=== PATIENT | female | born 1975 | race Caucasian/White ===

== ENCOUNTER 2023-03-22 22:45 | Emergency (ER) | payer MEDICARE, SELFPAY ==
[2023-03-22 22:51] VITALS: BP 135/102; PULSE 114; O2SAT 99
[2023-03-22 23:00] VITALS: PULSE 118; RESP 20; O2SAT 99
[2023-03-22 23:05] VITALS: BP 135/102; PULSE 106; RESP 23; O2SAT 99; BMI 34.0
--- NOTE | 2023-03-22 23:10 | ED_ITS ---
HPI - Neuro Symptoms/Deficit General Chief Complaint: Neuro Symptoms/Deficit Stated Complaint: Left sided facial droop Time Seen by Provider: 03/22/23 22:57 Source: patient Mode of arrival: Ambulatory History of Present Illness HPI Narrative: Patient is a 48-year-old female. She is here for evaluation of left-sided facial droop. She states the symptoms started 48 hours ago. She did smoke meth on the day of the onset of the symptoms. She thinks that it was a gradual onset. Over the past 2 days she is had waxing and waning symptoms but does not necessarily think that they have completely gone away. She is no other associated symptoms to include headache, vision changes, extremity weakness, extremity tingling or balance issues. She was seen at an outside emergency department yesterday secondary to an abscess on her right leg which was drained. She is on antibiotics. She did not mention the facial droop to the emergency physician at that time. She is never had symptoms like this in the past. No skin rashes. She has had surgery to repair a fracture of the orbital rim of her left eye but that was several years ago. No hearing changes. On Anticoagulants: No Review of Systems Review of Systems ROS Unobtainable: All systems reviewed & are unremarkable except as noted in HPI and below Hematologic/Lymphatic On Anticoagulants: No Patient History Social History Smoking Status: Current every day smoker Smoking Status: Current every day smoker tobacco type: cigarettes and vaping alcohol intake frequency: holidays/special occasions only Substance Use Type: methamphetamine Exam Initial Vital Signs Initial Vital Signs: Vital Signs Pulse Rate 114 H 03/22/23 22:51 Blood Pressure 135/102 H 03/22/23 22:51 Pulse Oximetry 99 03/22/23 22:51 Const General: cooperative, comfortable and No ill appearing HENMT Head: normal to inspection and normocephalic Nose: external nose normal Face and sinus: normal facial exam Mouth: oral mucosae normal Teeth and gingiva: poor dentition Eyes Pupils: PERRL EOM: EOM intact bilaterally Resp Effort & Inspection: normal respiratory effort Cardio Rate: regular rate GI Inspection: normal to inspection and non-distended Skin General: no rashes or lesions noted Neuro General: patient alert, patient awake, patient oriented x3, gait normal, tone normal and moves all extremities Speech: speech normal Motor: muscle tone normal throughout Sensory Exam: no sensory deficits noted Other: Cranial nerves are intact except that she does have a droop to the left side of her face. This does involve her upper eyelid but not necessarily her forehead. Her tongue is midline. She is no sensory deficits to light touch. Rest of her cranial nerves are intact. Extrem General: normal to inspection, capillary refill normal and No edema Scores GCS [place] coma scale eye opening: Spontaneous [place] coma scale verbal response: Orientated [place] coma scale motor response: Obey commands [place] coma scale total score: 15 Course Orders Ordered: ED Orders 03/22/23 22:30 Complete Blood Count AUTO DIFF Stat Comprehensive Metabolic Panel Stat Lipase Stat PTT Partial Thromboplastin Chaka Stat Prothrombin Time INR Stat 03/22/23 23:11 CT angio head and neck Stat CT head/brain wo con Stat EKG-12 Lead Stat Vital Signs Vital signs: Vital Signs - 8 hr 03/22/23 22:51 03/22/23 22:51 03/22/23 23:00 Pulse Rate 114 H 118 H Respiratory Rate 20 Blood Pressure 135/102 H Pulse Oximetry 99 99 Oxygen Delivery Method 03/22/23 23:05 03/22/23 23:30 03/22/23 23:50 Pulse Rate 106 H 97 H Respiratory Rate 23 18 Blood Pressure 135/102 H 128/82 Pulse Oximetry 99 97 Oxygen Delivery Method Room Air 03/22/23 23:50 Pulse Rate 99 H Respiratory Rate 19 Blood Pressure Pulse Oximetry 98 Oxygen Delivery Method MDM - Neuro Symptoms/Deficit Lab Data Attestation: I reviewed the patient's lab results. 03/22/23 22:30 03/22/23 22:30 Labs: Lab Results 03/22/23 Range/Units 22:30 WBC 6.6 (4.5-11.0) X10^3/uL RBC 4.62 (4.0-5.2) X10^6/uL Hgb 14.1 (12.0-16.0) g/dL Hct 41.1 (36-46) % MCV 89.0 (80-100) fL MCH 30.5 (26-34) PG MCHC 34.2 (30-36) % RDW 12.5 (11.6-14.8) % Plt Count 367 (150-400) X10^3/uL Neut % (Auto) 54.0 (50-75) % Lymph % (Auto) 31.9 (25-40) % [place] % (Auto) 9.0 (3-14) % Eos % (Auto) 4.0 (2-4) % Baso % (Auto) 1.1 (0-2) % Neut # (Auto) 3600 (1644-9434) /uL Lymph # (Auto) 2100 (3542-2626) /uL [place] # (Auto) 600 (0-900) /uL Eos # (Auto) 300 (0-450) /uL Baso # (Auto) 100 (0-100) /uL PT 11.4 (9.4-12.5) SECONDS INR 1.0 (0.9-1.3) APTT 35 (25.1-36.5) SECONDS Sodium 137 (137-145) mmol/L Potassium 4.1 (3.4-5.1) mmol/L Chloride 105 (98-107) mmol/L Carbon Dioxide 23 (22-32) mmol/L BUN 16 (7-17) mg/dL Creatinine 0.72 (0.52-1.04) mg/dL Estimated GFR > 60 (>60) mL/min BUN/Creatinine Ratio 22.2 H (6-22) Glucose 124 H (70-100) mg/dL Calcium 9.3 (8.4-10.2) mg/dL Total Bilirubin 0.5 (0.2-1.3) mg/dL AST 34 (14-36) IU/L ALT 39 H (<35) IU/L Alkaline Phosphatase 99 (38-126) U/L Total Protein 8.0 (6.3-8.2) g/dL Albumin 4.1 (3.5-5.0) g/dL Globulin 3.9 (1.7-4.1) g/dL Albumin/Globulin Ratio 1.1 (1.0-2.8) Lipase 92 (23-300) U/L Imaging Data CT scan - head: Radiologist's Impression: PROCEDURE: CT HEAD/BRAIN WO CON INDICATIONS: Left-sided facial droop TECHNIQUE: Noncontrast 4.5 mm thick angled axial sections acquired from the foramen magnum to the vertex, with coronal and sagittal reformats. For radiation dose reduction, the following was used: automated exposure control, adjustment of mA and/or kV according to patient size. COMPARISON: None. FINDINGS: Image quality: Diagnostic. CSF spaces: Basal cisterns are patent. No extra-axial fluid collections. Ventricles are normal in size and shape. Brain: No midline shift. No intracranial masses or hemorrhage. [place]-white matter interface is normal. Skull and face: Calvarium and visualized facial bones are intact, without suspicious lesions. Sinuses: Visualized sinuses and mastoids are clear. IMPRESSION: CT head without acute intracranial abnormalities. No mass or mass effect visualized. CTA - brain/neck: Radiologist's Impression: PROCEDURE: CT ANGIO HEAD AND NECK INDICATIONS: Left-sided facial droop TECHNIQUE: After the administration of intravenous contrast, 1 mm thick sections acquired from the aortic arch through the [place] of [place]. 3-dimensional yeyorhe-yhheznjba-wzufvmrkbn (MIP) and/or volume rendering reformats were acquired of the central intracranial vasculature and neck separately. For radiation dose reduction, the following was used: automated exposure control, adjustment of mA and/or kV according to patient size. COMPARISON: None. FINDINGS: Image quality: Diagnostic. BRAIN: CSF spaces: Ventricles are normal in size and shape. Basal cisterns are patent. No extra-axial fluid collections. Brain: No midline shift. No intracranial masses. No abnormal intracranial enhancement. [place]-white matter interface appears intact. Skull and face: Calvarium and facial bones appear intact, without suspicious lesions. Orbits appear normal. Sinuses: Mild bilateral maxillary sinus mucosal thickening. Remainder of the paranasal sinuses and mastoids are clear. HEAD CT ANGIOGRAPHY: Anterior circulation: Intracranial internal carotid arteries appear patent without high-grade stenosis. There is flow/opacification within the paired anterior cerebral arteries. There is opacification within the middle cerebral arteries. The anterior communicating artery is seen. No aneurysms are seen. No occlusion. Posterior circulation: Visualized portions of the vertebral arteries are patent and join to form a normal appearing basilar artery. No evidence for high-grade stenosis. No occlusions. There is opacification of the posterior cerebral arteries. No aneurysms are seen. NECK CT ANGIOGRAPHY: Carotid system: The great vessels demonstrate a conventional anatomy as they arise from the aortic arch. The origins of the common carotid arteries appear patent. The common carotid arteries appear patent throughout their visualized courses without high grade stenosis. The bifurcation regions are both patent without high grade stenosis. The internal carotid arteries demonstrate normal calibers and courses. Posterior circulation: The origins of the vertebral arteries both appear patent without hemodynamically significant stenosis. The more superior extracranial portions of both vertebral arteries also demonstrate normal courses and calibers. They join to form a normal appearing basilar artery. Soft tissues: Visualized neck soft tissues demonstrate no suspicious abnormalities. No adenopathy seen. Bones: No suspicious bony lesions. Visualized cervical spine appears normally aligned. No acute compression fractures of the vertebral bodies. Straightening of cervical lordosis which may be due to patient positioning and/or concurrent muscle spasms. Multilevel cervical spondylosis most severe at C5-6 and C6-7. IMPRESSION: Negative CT angiogram of the intracranial and neck arterial vasculature for occlusion, high-grade stenosis, dissection, or aneurysm. Mild bilateral maxillary sinus disease. Mild straightening of normal cervical lordosis likely related to positioning and/or concurrent muscle spasms. Multilevel cervical spondylosis most pronounced at C5-6 and C6-7 ECG Data Interpretation: Sinus tachycardia Ventricular rate 103 Normal axis Normal QRS Normal QTC No ST T wave changes MDM Narrative Medical decision making narrative: Based on her presentation today I do have concern for CVA/TIA or Landry's palsy. Her symptoms have been going on for the past 2 days. Out of the window for tPA or code IR if this was a CVA. Initially based on her exam it did involve the left side of her face and did involve her left upper eyelid but did not seem to involve the left forehead. It seemed to be a motor deficit only. There was no sensory deficits. No other neurologic symptoms. The rest of her cranial nerves are unremarkable. Her head CT and CTA of the head neck were unremarkable. Upon re-evaluation after the CT scans her symptoms are much better. She was still having some drooping of the left lower face but the left upper face seemed to be completely normal and equal to the right. I had discussion with her regarding her symptoms. We discussed the possibility of a CVA however her symptoms are waxing and waning in it has been 2 days since the onset. We also discussed the possibility of Landry's palsy. Informed her that the fact that is waxing and waning and that it did not involve her forehead although it did involve her left upper eye makes Landry's palsy somewhat questionable. We discussed options to include staying here in the emergency department this evening and obtaining an MRI in the morning versus discharge home and follow-up with the primary doctor. She wonders whether or not her symptoms are anxiety related she has had some housing instability and has had quite a bit of stress recently. I informed her that this could be anxiety related. After the discussion the patient states she would like to be discharged home. She understands the risks and benefits in the lack of a definitive diagnosis and understands this could still be a CVA (although I do think that this is unlikely) she was given strict return precautions. She expressed understanding and agreement. Discharge Plan Departure Patient Disposition: Home Clinical Impression: Facial palsy Activity Restrictions/Additional Instructions: I recommend that you continue to take all of your medications to include the antibiotics as directed. Recommend you contact your primary doctor for a follow-up. If you start to have worsening symptoms or more persistent symptoms or new symptoms please return to the emergency department for further evaluation like we discussed. Stand Alone Forms: Patient Portal/API
[2023-03-22 23:30] VITALS: PULSE 97; RESP 18; O2SAT 97
[2023-03-22 23:50] VITALS: BP 128/82; PULSE 99; RESP 19; O2SAT 98
[2023-03-22 23:59] LABS: Add Manual Diff / Slide Review NO; Basophils Absolute Auto 100 /uL (0-100); Basophils Percent Auto 1.1 % (0-2); Eosinophils Absolute Auto 300 /uL (0-450); Hematocrit 41.1 % (36-46); Hemoglobin 14.1 g/dL (12.0-16.0); Lymphocytes Absolute Auto 2100 /uL (1100-4500); Lymphocytes Percent Auto 31.9 % (25-40); Mean Corpuscular HGB Conc 34.2 % (30-36); Mean Corpuscular Hemoglobin 30.5 PG (26-34); Monocytes Absolute Auto 600 /uL (0-900); Neutrophils Absolute Auto 3600 /uL (1500-7000); Platelet Count 367 X10^3/uL (150-400); Red Blood Cell Count 4.62 X10^6/uL (4.0-5.2); Red Cell Distribution Width 12.5 % (11.6-14.8); White Blood Cell Count 6.6 X10^3/uL (4.5-11.0)
[2023-03-23] VITALS: BP 129/83; PULSE 98; RESP 23; O2SAT 98
[2023-03-23 00:04] LABS: Prothrombin Time 11.4 SECONDS (9.4-12.5)
[2023-03-23 00:06] LABS: PTT Partial Thromboplastin Tim 35 SECONDS (25.1-36.5)
[2023-03-23 00:09] LABS: Alanine Aminotransferase 39 IU/L (<35); Albumin 4.1 g/dL (3.5-5.0); Albumin Globulin Ratio 1.1 (1.0-2.8); Alkaline Phosphatase 99 U/L (38-126); Aspartate Aminotransferase 34 IU/L (14-36); BUN Creatinine Ratio 22.2 (6-22); Bilirubin Total 0.5 mg/dL (0.2-1.3); Blood Urea Nitrogen 16 mg/dL (7-17); Calcium 9.3 mg/dL (8.4-10.2); Carbon Dioxide 23 mmol/L (22-32); Chloride 105 mmol/L (98-107); Estimated Glomerular Filt Rate > 60 mL/min (>60); Globulin 3.9 g/dL (1.7-4.1); Glucose 124 mg/dL (70-100); HEMOLYSIS 18 (0-50); Lipase 92 U/L (23-300); Potassium 4.1 mmol/L (3.4-5.1); Sodium 137 mmol/L (137-145)
[2023-03-23 00:30] VITALS: BP 121/86; PULSE 97; RESP 18; O2SAT 98
[2023-03-23 00:53] VITALS: BP 137/89; PULSE 97; RESP 18; TEMP 36.8; O2SAT 98
== END 2023-03-23 01:00 | disposition home or self-care (01) ==
PROVIDERS: Emergency Provider Emergency Medicine
DX: G51.0 Bell's palsy (principal); R00.0 Tachycardia, unspecified
CPT/HCPCS: 36415; 70450; 70496; 70498; 80053; 83690; 85025; 85610; 85730; 93005; 93010; 99284; Q9967

== ENCOUNTER 2023-03-23 10:29 | Emergency (ER) | payer MEDICARE, SELFPAY ==
[2023-03-23 10:42] VITALS: BP 126/84; PULSE 106; RESP 18; TEMP 36.5; O2SAT 97; BMI 34.0
[2023-03-23 10:49] VITALS: PULSE 99; O2SAT 97
[2023-03-23 11:00] VITALS: BP 123/83; PULSE 96; O2SAT 98
[2023-03-23 11:12] LABS: Add Manual Diff / Slide Review NO; Basophils Absolute Auto 100 /uL (0-100); Basophils Percent Auto 0.9 % (0-2); Eosinophils Absolute Auto 200 /uL (0-450); Hematocrit 40.3 % (36-46); Hemoglobin 13.8 g/dL (12.0-16.0); Lymphocytes Absolute Auto 2100 /uL (1100-4500); Mean Corpuscular HGB Conc 34.3 % (30-36); Mean Corpuscular Hemoglobin 30.6 PG (26-34); Monocytes Absolute Auto 600 /uL (0-900); Monocytes Percent Auto 8.3 % (3-14); Neutrophils Absolute Auto 4100 /uL (1500-7000); Neutrophils Percent Auto 57.8 % (50-75); Platelet Count 385 X10^3/uL (150-400); Red Blood Cell Count 4.53 X10^6/uL (4.0-5.2); Red Cell Distribution Width 12.5 % (11.6-14.8)
--- NOTE | 2023-03-23 11:16 | ED_ITS ---
HPI - Headache General Chief Complaint: Headache Stated Complaint: here last night symptoms got worse/ landry's palsy? Time Seen by Provider: 03/23/23 11:05 Mode of arrival: Ambulatory History of Present Illness HPI Narrative: Patient is 48-year-old female history of methamphetamine abuse presents for the 2nd time facial. She was seen evaluated here last night head workup included CT angio CT head and blood work concerning for Landry's palsy, although CVA not completely ruled out with MRI. Patient reports that symptoms started about 3 days ago. She admits to smoking methamphetamine yesterday. She feels like her facial be a little bit worse. She does have difficulty closing her left eye. No fever or chills. No numbness tingling or weakness or other deficits. No chest pain palpitations or any other symptoms. Related Data Previous Rx's Medication Instructions Recorded acyclovir 800 mg tablet 800 mg PO 5XD #35 tabs 03/23/23 carboxymethylcellulose sodium 1 % 2 drp EYE-LEFT Q2HRWA #15 mL 03/23/23 eye drops (Artificial Tears (carboxymethylcellulose)) prednisone 20 mg tablet 40 mg (2 x 20 mg) PO DAILY #10 tabs 03/23/23 white petrolatum-mineral oil 83 0.25 inch EYE-LEFT Q2HRWA #3.5 03/23/23 %-15 % eye ointment (Artificial grams Eye Lubricant) Allergies Allergy/AdvReac Type Severity Reaction Status Date / Time erythromycin base Allergy Verified 03/23/23 10:42 sumatriptan Allergy Verified 03/23/23 10:42 Patient History Social History Smoking Status: Current every day smoker Smoking Status: Current every day smoker tobacco type: cigarettes and vaping alcohol intake frequency: holidays/special occasions only Substance Use Type: methamphetamine Exam Initial Vital Signs Initial Vital Signs: Vital Signs Temperature 97.7 F 03/23/23 10:42 Pulse Rate 106 H 03/23/23 10:42 Respiratory Rate 18 03/23/23 10:42 Blood Pressure 126/84 03/23/23 10:42 Pulse Oximetry 97 03/23/23 10:42 Oxygen Delivery Method Room Air 03/23/23 10:42 GENERAL: Alert 48-year-old female HEENT: Head atraumatic,EOMI, pupils reactive, left facial droop, inability to completely close left eye moist mucous membranes CARDIOVASCULAR: Regular rate and rhythm without murmurs, rubs or gallops. RESPIRATORY: Breath sounds equal bilaterally, no wheezes rales or rhonchi. ABDOMEN: Soft, nontender. Normoactive bowel sounds all 4 quadrants. No guarding or rebound. EXTREMITIES: Normal range of motion, no clubbing or edema. Neurovascularly intact NEUROLOGICAL: Alert and oriented x4.Normal gait and speech. Cranial nerves II through XII grossly intact. Good iqxydq-[id number], good [id number]-[id number], strength equal bilaterally, no dysarthria or aphasia, sensation in tact to soft touch bilaterally, no visual changes, left facial droop SKIN: Warm, dry, no laceration, no petechiae, no rashes or lesions. Course Orders Ordered: ED Orders 03/23/23 11:00 Complete Blood Count AUTO DIFF Stat Comprehensive Metabolic Panel Stat Magnesium Stat PTT Partial Thromboplastin Chaka Stat Prothrombin Time INR Stat Troponin & CK Cardiac Panel Stat 03/23/23 11:23 MR stroke Stat 03/23/23 11:27 EKG-12 Lead Stat Discontinued Medications Ondansetron HCl (Ondansetron 4 Mg/2 Ml Inj) 4 mg IV NOW PRN PRN Reason: Nausea And Vomiting Ondansetron HCl (Ondansetron 4 Mg Odt) 4 mg SL NOW PRN PRN Reason: Nausea And Vomiting Vital Signs Vital signs: Vital Signs - 8 hr 03/23/23 10:42 03/23/23 10:49 03/23/23 11:00 Temperature 97.7 F Pulse Rate 106 H 99 H Respiratory Rate 18 Blood Pressure 126/84 123/83 Pulse Oximetry 97 97 Oxygen Delivery Method Room Air 03/23/23 11:00 03/23/23 11:30 03/23/23 15:15 Temperature Pulse Rate 96 H 98 H Respiratory Rate Blood Pressure 124/78 Pulse Oximetry 98 98 Oxygen Delivery Method 03/23/23 15:15 03/23/23 15:15 03/23/23 16:41 Temperature 97.6 F Pulse Rate 118 H 99 H Respiratory Rate 12 Blood Pressure 134/91 H Pulse Oximetry 97 99 Oxygen Delivery Method Room Air MDM - Headache Lab Data 03/23/23 11:00 03/23/23 11:00 Labs: Lab Results 12/15/23 Range/Units 11:00 WBC 7.0 (4.5-11.0) X10^3/uL RBC 4.53 (4.0-5.2) X10^6/uL Hgb 13.8 (12.0-16.0) g/dL Hct 40.3 (36-46) % MCV 89.0 (80-100) fL MCH 30.6 (26-34) PG MCHC 34.3 (30-36) % RDW 12.5 (11.6-14.8) % Plt Count 385 (150-400) X10^3/uL Neut % (Auto) 57.8 (50-75) % Lymph % (Auto) 30.0 (25-40) % [place] % (Auto) 8.3 (3-14) % Eos % (Auto) 3.0 (2-4) % Baso % (Auto) 0.9 (0-2) % Neut # (Auto) 4100 (7154-0491) /uL Lymph # (Auto) 2100 (5269-4264) /uL [place] # (Auto) 600 (0-900) /uL Eos # (Auto) 200 (0-450) /uL Baso # (Auto) 100 (0-100) /uL PT 11.7 (9.4-12.5) SECONDS INR 1.0 (0.9-1.3) APTT 35 (25.1-36.5) SECONDS Sodium 137 (137-145) mmol/L Potassium 4.0 (3.4-5.1) mmol/L Chloride 103 (98-107) mmol/L Carbon Dioxide 25 (22-32) mmol/L BUN 15 (7-17) mg/dL Creatinine 0.86 (0.52-1.04) mg/dL Estimated GFR > 60 (>60) mL/min BUN/Creatinine Ratio 17.4 (6-22) Glucose 108 H (70-100) mg/dL Calcium 9.6 (8.4-10.2) mg/dL Magnesium 2.0 (1.6-2.3) mg/dL Total Bilirubin 0.5 (0.2-1.3) mg/dL AST 35 (14-36) IU/L ALT 40 H (<35) IU/L Alkaline Phosphatase 100 (38-126) U/L Total Creatine Kinase 33 (30-135) U/L Troponin I < 0.012 (0.01-0.034) ng/mL Total Protein 8.1 (6.3-8.2) g/dL Albumin 4.2 (3.5-5.0) g/dL Globulin 3.9 (1.7-4.1) g/dL Albumin/Globulin Ratio 1.1 (1.0-2.8) Imaging Data MR brain: Radiologist's Impression: PROCEDURE: MR STROKE Pre- and post-contrast brain MRI, non-contrast brain MR angiogram, pre- and postcontrast neck MR angiogram INDICATIONS: left facial droop TECHNIQUE: Brain: Noncontrast axial T1 spin echo, axial T2 fast spin echo, sagittal and axial FLAIR, coronal T2 fast spin echo, axial gradient echo, axial diffusion and ADC through the brain. After the administration of contrast, axial 3D VIBE of the cranial vasculature and brain. Brain MRA: Non-contrast 3-D time of flight MR angiogram, with multiple mgrhxyq-ctzfpfvpt-xdhbdvzisq (MIP) reformats performed. Neck MRA: Axial and sagittal TruFISP through the neck. Coronal dynamic MR angiogram during administration of contrast in the arterial and venous phases, with 3- dimenstional ffogevq-wtmidfvdj-myljjjwqxm (MIP) reformats constructed from subtraction images. COMPARISON: [facility], CT, CT ANGIO HEAD AND NECK, 03/22/2023, 23:29. [facility], CT, CT HEAD/BRAIN WO CON, 03/22/2023, 23:29. FINDINGS: Image quality: This examination is limited by involuntary motion artifact. BRAIN: CSF spaces: Ventricles are normal in size and shape. Basal cisterns are patent. No extra-axial fluid collections. Brain: No intracranial bleeds or mass effects. [place]-white matter interface is normal. Diffusion weighted images show no acute ischemic insults. Brainstem appears normal. Normal intravascular flow voids are present. No abnormal intracranial enhancement. Skull and face: Calvarial marrow signal is normal. Orbits appear normal. In this patient with this given history, scrutiny is given to course of the left facial nerve, including within the left parotid gland. To the limits of this study, no masses or abnormal enhancement can be seen along the course of the left facial nerve, including within the left parotid gland. Sinuses: There is moderate mucosal thickening within the left maxillary sinus, with milder mucosal thickening seen elsewhere within the paranasal sinuses. No abnormal fluid is seen within the mastoid air cells. BRAIN MR ANGIOGRAM: Anterior circulation: Intracranial internal carotid arteries are normal in size and enhancement. The flow within the paired anterior cerebral arteries is normal and symmetric. The flow within the middle cerebral arteries is normal and symmetric. The anterior communicating artery is seen. No stenoses, occlusions, or aneurysms. Posterior circulation: Visualized portions of the vertebral arteries demonstrate normal caliber, and join to form a normal appearing basilar artery. There is a prominent right posterior communicating artery seen, with an accompanying diminutive right P1 segment. This is attributed to a type origin of the right posterior cerebral artery, which is considered to be a normal developmental variant of typically no clinical consequence. The flow within the posterior cerebral arteries is normal and symmetric. No aneurysms are seen. NECK MR ANGIOGRAM: Carotids: Great vessels demonstrate a conventional anatomy as they arise from the aortic arch. The origins of the common carotid arteries appear patent. The calibers and courses of both common carotid arteries are normal. The bifurcation regions appear normal bilaterally. The internal carotid arteries demonstrate normal course and caliber. Posterior circulation: The origins of the vertebral arteries appear patent. More superior portions of both vertebral arteries demonstrate normal course and caliber, and join to form a normal appearing basilar artery. Miscellaneous: Subclavian arteries appear patent. Pre-contrast images through the neck show no soft tissue abnormalities. IMPRESSION: BRAIN MRI: No imaging explanation is found for this patient's presenting symptoms. No findings of acute or subacute infarction can be seen. No masses or abnormal enhancement can be seen along course of the left facial nerve, to the limits of this standard protocol study. BRAIN MR ANGIOGRAM: No significant intracranial arterial abnormality is seen. NECK MR ANGIOGRAM: Within the arteries of the neck, no hemodynamically significant stenosis can be seen. Dictated by: Jimmy Stephen M.D. on 03/23/2023 at 14:28 MDM Narrative Medical decision making narrative: Patient 48-year-old female history of methamphetamine abuse presenting today with 2 days of left-sided facial droop inability called close left eye. Evaluation last night head CT and CT angio did not show any acute stroke. Concern cause facial droop seem to be worse today. No numbness tingling or weakness up and ambulatory in the ED multiple times. MR today does not show any evidence of acute stroke. I suspect with inability to close left eye left facial droop clinical presentation consistent with Landry's palsy an MRI ruled out for stroke. Blood work again has been reviewed by myself not have any clinical significant abnormalities. Discharge Plan Departure Patient Disposition: Home Clinical Impression: Landry's palsy, Facial nerve palsy Instructions: DI for [place] Palsy Activity Restrictions/Additional Instructions: *You have been diagnosed with Landry's palsy *What to do: At this time MRI does not show any evidence of stroke. Please be sure to artificial tears in your left eye. *Continue to take medications as directed Acyclovir 800 mg 5 times daily for 7 days Prednisone 40 mg once daily for 5 days Artificial tears every 2-3 hours daily *Follow up with your primary care provider in 2-3 days or call [phone] *Return to ER if you should have increased visual changes weakness or any new, worsening or concerning symptoms Prescriptions: New prednisone 20 mg tablet 40 mg PO DAILY Qty: 10 0RF acyclovir 800 mg tablet 800 mg PO 5XD Qty: 35 0RF Rx Instructions: space evenly during waking hours Artificial Eye Lubricant 83-15 % ointment 0.25 inch EYE-LEFT Q2HRWA Qty: 3.5 0RF Artificial Tears (cmc) 1 % drops 2 drp EYE-LEFT Q2HRWA Qty: 15 0RF Stand Alone Forms: Patient Portal/API
[2023-03-23 11:17] LABS: Prothrombin Time 11.7 SECONDS (9.4-12.5)
[2023-03-23 11:20] LABS: PTT Partial Thromboplastin Tim 35 SECONDS (25.1-36.5)
--- NOTE | 2023-03-23 11:23 | DI.MRI.S_ITS ---
PROCEDURE: MR STROKE Pre- and post-contrast brain MRI, non-contrast brain MR angiogram, pre- and postcontrast neck MR angiogram INDICATIONS: left facial droop TECHNIQUE: Brain: Noncontrast axial T1 spin echo, axial T2 fast spin echo, sagittal and axial FLAIR, coronal T2 fast spin echo, axial gradient echo, axial diffusion and ADC through the brain. After the administration of contrast, axial 3D VIBE of the cranial vasculature and brain. Brain MRA: Non-contrast 3-D time of flight MR angiogram, with multiple mwcwugl-vhtbwjres-fvjzzitsuf (MIP) reformats performed. Neck MRA: Axial and sagittal TruFISP through the neck. Coronal dynamic MR angiogram during administration of contrast in the arterial and venous phases, with 3-dimenstional xpelnfl-kdebwwdzm-ogcwvpovni (MIP) reformats constructed from subtraction images. COMPARISON: [facility], CT, CT ANGIO HEAD AND NECK, 03/22/2023, 23:29. [facility], CT, CT HEAD/BRAIN WO CON, 03/22/2023, 23:29. FINDINGS: Image quality: This examination is limited by involuntary motion artifact. BRAIN: CSF spaces: Ventricles are normal in size and shape. Basal cisterns are patent. No extra-axial fluid collections. Brain: No intracranial bleeds or mass effects. Salvador-white matter interface is normal. Diffusion weighted images show no acute ischemic insults. Brainstem appears normal. Normal intravascular flow voids are present. No abnormal intracranial enhancement. Skull and face: Calvarial marrow signal is normal. Orbits appear normal. In this patient with this given history, scrutiny is given to course of the left facial nerve, including within the left parotid gland. To the limits of this study, no masses or abnormal enhancement can be seen along the course of the left facial nerve, including within the left parotid gland. Sinuses: There is moderate mucosal thickening within the left maxillary sinus, with milder mucosal thickening seen elsewhere within the paranasal sinuses. No abnormal fluid is seen within the mastoid air cells. BRAIN MR ANGIOGRAM: Anterior circulation: Intracranial internal carotid arteries are normal in size and enhancement. The flow within the paired anterior cerebral arteries is normal and symmetric. The flow within the middle cerebral arteries is normal and symmetric. The anterior communicating artery is seen. No stenoses, occlusions, or aneurysms. Posterior circulation: Visualized portions of the vertebral arteries demonstrate normal caliber, and join to form a normal appearing basilar artery. There is a prominent right posterior communicating artery seen, with an accompanying diminutive right P1 segment. This is attributed to a type origin of the right posterior cerebral artery, which is considered to be a normal developmental variant of typically no clinical consequence. The flow within the posterior cerebral arteries is normal and symmetric. No aneurysms are seen. NECK MR ANGIOGRAM: Carotids: Great vessels demonstrate a conventional anatomy as they arise from the aortic arch. The origins of the common carotid arteries appear patent. The calibers and courses of both common carotid arteries are normal. The bifurcation regions appear normal bilaterally. The internal carotid arteries demonstrate normal course and caliber. Posterior circulation: The origins of the vertebral arteries appear patent. More superior portions of both vertebral arteries demonstrate normal course and caliber, and join to form a normal appearing basilar artery. Miscellaneous: Subclavian arteries appear patent. Pre-contrast images through the neck show no soft tissue abnormalities. IMPRESSION: BRAIN MRI: No imaging explanation is found for this patient's presenting symptoms. No findings of acute or subacute infarction can be seen. No masses or abnormal enhancement can be seen along course of the left facial nerve, to the limits of this standard protocol study. BRAIN MR ANGIOGRAM: No significant intracranial arterial abnormality is seen. NECK MR ANGIOGRAM: Within the arteries of the neck, no hemodynamically significant stenosis can be seen. Dictated by: Jimmy Stephen M.D. on 03/23/2023 at 14:28 Approved by: Jimmy Stephen M.D. on 03/23/2023 at 14:51
[2023-03-23 11:24] LABS: Alanine Aminotransferase 40 IU/L (<35); Albumin 4.2 g/dL (3.5-5.0); Albumin Globulin Ratio 1.1 (1.0-2.8); Alkaline Phosphatase 100 U/L (38-126); Aspartate Aminotransferase 35 IU/L (14-36); BUN Creatinine Ratio 17.4 (6-22); Bilirubin Total 0.5 mg/dL (0.2-1.3); Blood Urea Nitrogen 15 mg/dL (7-17); Calcium 9.6 mg/dL (8.4-10.2); Carbon Dioxide 25 mmol/L (22-32); Chloride 103 mmol/L (98-107); Creatine Kinase 33 U/L (30-135); Estimated Glomerular Filt Rate > 60 mL/min (>60); Globulin 3.9 g/dL (1.7-4.1); Glucose 108 mg/dL (70-100); HEMOLYSIS < 15 (0-50); Sodium 137 mmol/L (137-145); Total Protein 8.1 g/dL (6.3-8.2)
[2023-03-23 11:30] VITALS: PULSE 98; O2SAT 98
[2023-03-23 11:35] LABS: Troponin I < 0.012 ng/mL (0.01-0.034)
[2023-03-23 15:15] VITALS: BP 124/78; PULSE 118; TEMP 36.4; O2SAT 97
[2023-03-23 16:41] VITALS: BP 134/91; PULSE 99; RESP 12; O2SAT 99
== END 2023-03-23 16:43 | disposition home or self-care (01) ==
PROVIDERS: Emergency Provider Emergency Medicine
DX: G51.0 Bell's palsy (principal)
CPT/HCPCS: 36415; 70548; 70553; 80053; 82550; 83735; 84484; 85025; 85610; 85730; 93005; 93010; 99284